=== PATIENT | male | born 1960 | race Caucasian/White ===

== ENCOUNTER 2020-09-14 21:05 | Emergency (ER) | payer OTHER, MEDICARE, MEDICAID, SELFPAY ==
--- NOTE | ~2020-09-14 | CT_ITS ---
EXAMINATION: CT HEAD WITHOUT CONTRAST CLINICAL INFORMATION: Acute CVA. Intracranial bleed. COMPARISON: CT head 07/16/2018 TECHNIQUE: Contiguous axial imaging was performed from the skull base to vertex without intravenous administration of contrast. This CT examination was performed using dose optimization techniques as appropriate, variously including the following: *Automated exposure control *Adjustment of mA and/or kV according to patient size (this includes techniques or standardized protocols for targeted exams where dose is matched to indication/reason for exam; i.e. extremities or head) *Use of iterative reconstruction technique DLP: 828 mGy-cm FINDINGS: There is an old infarct with large area of encephalomalacia in the left MCA territory is unchanged since the CAT scan of 2018. There is now geographic area of low attenuation involving cortical wilkerson matter and underlying white matter in the right MCA territory involving the right temporal, parietal and frontal lobe. This is new since prior exam. This does have mild mass effect. There is compression of the right lateral ventricle. There is about 4 mm midline shift toward the left. The right middle cerebral artery is hyperdense concerning for thrombus. There are heavy vascular calcification of the internal carotid arteries bilaterally as well as calcification of the right greater than left middle cerebral arteries. There is vascular calcifications of the basilar artery and the vertebral arteries. No evidence of intracranial hemorrhage . The osseous structures and soft tissues are normal. The mastoid air cells and visualized portions of the paranasal sinuses are well aerated. CT/CT head/brain wo con IMPRESSION: 1. Large right-sided MCA territory infarct that appears to be subacute. Possible thrombus of the right middle cerebral artery. 2. Large old left-sided MCA territory infarct. This critical result was discussed with Dr. Perez on 09/14/2020, 9:30 PM and it was ascertained that the content and urgency of the report was understood at the time of direct communication.
--- NOTE | ~2020-09-14 | CT_ITS ---
EXAMINATION: CT ANGIOGRAM NECK WITH CONTRAST CT ANGIOGRAM BRAIN WITH CONTRAST CLINICAL INFORMATION: Right MCA CVA. COMPARISON: Head CT performed just prior. TECHNIQUE: Test bolus sequences followed by intravenous administration 70 mL of Omnipaque 350. Helical imaging was performed in the axial plane from the thoracic inlet to the skull vertex. Delayed postcontrast imaging of the head was also performed. The data was processed at the mammography technologist workstation for generation of MIP sequences. Angled MIPs and volume rendered reformatted images were also generated at an offline 3D workstation. Stenoses are assessed in accordance with NASCET criteria unless otherwise indicated. This CT examination was performed using dose optimization techniques as appropriate, variously including the following: *Automated exposure control *Adjustment of mA and/or kV according to patient size (this includes techniques or standardized protocols for targeted exams where dose is matched to indication/reason for exam; i.e. extremities or head) *Use of iterative reconstruction technique DLP: 1553 mGy-cm FINDINGS: Head CT: There is a large evolving acute infarct within the right MCA vascular territory involving the frontal lobe, parietal lobe, temporal lobe, insula, and basal ganglia. No gross hemorrhage is seen. There is cytotoxic edema with associated sulcal effacement results in partial narrowing of the right lateral ventricle with 4 mm of leftward midline shift. A large chronic infarct is seen in the left MCA vascular territory with encephalomalacia and gliosis and ex vacuo dilatation of the left lateral ventricle. Some dystrophic calcifications are also seen within the region of infarction. The extracranial structures are within normal limits. Neck CTA: The imaged portions of the great vessels appear patent. Atheromatous changes are seen involving the common carotid arteries and carotid bifurcations but without significant stenosis. The cervical segments of both ICAs are patent. Atheromatous changes are seen at the carotid siphons without significant stenosis. Bilateral vertebral arteries are patent. Head CTA: The right M1 MCA segment is occluded. The right M2 segments are nonopacified. There is some distal opacification of MCA collaterals. The right A1 segment is patent. The left M1 is occluded which is presumably chronic. The left M2 demonstrates diminutive opacification. The ACAs are patent. The vertebrobasilar system and furniture stainer are patent. No aneurysm is seen. Non-vascular findings: A large amount of air is seen within the pharynx. There is no consolidation within the upper lungs. Degenerative changes are seen in the spine. CT/CT angio head neck IMPRESSION: Thrombotic occlusion of the right M1 MCA segment with evolving large MCA territory ischemic changes. The degree of cytotoxic edema and presence of sulcal effacement, mild leftward midline shift, and narrowing of the right lateral ventricle suggests this infarct may be greater than 24 hours old. Left M1 segment also appears occluded but is likely chronic given the extensive encephalomalacic and gliotic changes seen in left cerebral hemisphere related to old MCA infarction. Major neck arteries are patent. This critical result was discussed with Dr. Perez on 09/14/2020 9:48PM, and it was ascertained that the content and urgency of the report was understood at the time of direct communication.
--- NOTE | ~2020-09-14 | XR_ITS ---
EXAMINATION: XR CHEST CLINICAL INFORMATION: CVA. COMPARISON: None TECHNIQUE: Frontal portable view of the chest was obtained. 10:23 PM FINDINGS: Endotracheal tube 3.5 cm both dl. Lung volume is low. No acute change. No significant pulmonary vascular congestion. No pleural effusion or pneumothorax. No focal consolidation. XR/XR chest 1V IMPRESSION: Endotracheal tube 3.5 cm above the dl. Low lung volume. No acute change of chest.
--- NOTE | 2020-09-14 21:13 | ED.NEUROSD ---
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 wheelchair-bound aphasic was seen normal 14:00 yesterday by the [facility] staff today he did get up from the bed sore urine and they noticed that he is not moving his left side and called the EMS on arrival patient was giving to the right side no movement to the left side minimal movement on the right side, patient is on Eliquis Onset (ago): day(s) (1) Timing confirmed by: caregiver Related Data Allergies Allergy/AdvReac Type Severity Reaction Status Date / Time No Known Allergies Allergy Unverified 04/12/20 19:33 [No Known Allergies*] Review of Systems Review of Systems: Yes Unobtainable due to mental status [facility] Past Medical History Medical History (Updated 09/15/20 @ 01:47 by Bigg Perez MD) Abdominal aortic aneurysm Anxiety Aphasia Left-sided cerebrovascular accident (CVA) Social History Social History Advance Directives: No Advance Directives Information Provided: Yes Physical Exam Vital Signs: Vital Signs: Last Vital Signs Pulse 108 H 09/15/20 01:20 Resp 12 09/15/20 01:20 BP 125/89 09/15/20 01:20 Pulse Ox 86 L 09/15/20 01:20 Body Mass Index 26.2 Const: General: well developed and ill appearing HENMT: Head: Yes No palpable skull fracture present, Yes normocephalic and Yes atraumatic Eyes: Other: Gaze to the right side Sclerae: sclerae normal Corneas: corneas normal Pupils: Equal, round and reactive pupils present Neck: Neck: Yes normal visual inspection and Yes midline deformity Carotids: normal carotid upstroke Chest: Chest palpation & inspection: normal palpation of entire chest wall Resp: Effort & Inspection: normal respiratory effort Auscultation: clear to auscultation bilaterally, no crackles, no rales and no rhonchi Cardio: Jugular venous distension: no JVD Rate: regular rate Rhythm: regular rhythm Heart sounds: S1 normal heart sound present and S2 normal heart sound present Peripheral pulses: Peripheral pulses 2+ throughout GI: Inspection: Yes normal to inspection Palpation (GI): Soft to palpation and nontender Auscultation: normal bowel sounds Back/Spine/Pelvis: Thoracic/Lumbar Spine: thoracic and lumbar spine normal to inspection Skin: General skin exam: no rashes or lesions noted Neuro: Other: Patient awake with minimal movements on the right side minimal movement to the right side no movement on the left side aphasic Cranial nerves: Yes Equal, round and reactive pupils present Course Reevaluation(s) Reevaluation #1: Case discussed with patient's brother decided to make the patient PSYCHIATRIC SECRETARY will taking off from ventilator Time: 00:13 Reevaluation #2: Patient off ventilator breathing off his own will consult case management for placement/hospice care Time: 01:40 Procedures Intubation Time out performed: Yes sedative: Etomidate Mg Given: 20 paralytic: Rocuronium Mg Given: 50 Laryngoscope: Tanya ET Tube Size: 8 ET Tube Uncuffed: No Tube Secured Depth (cm): 24 Tube Secured Location: lips Tube Placement Confirmation: visualized tube passing through cords Patient Tolerated Procedure: no complications Intubation Complications: none MDM - Neuro Symptoms/Deficit MDM Narrative Medical decision making narrative: 22:10 Patient with subacute right MCA stroke with M1 thrombus and significant vasogenic edema likely onset about 24 hours patient already on Eliquis case discussed Dr. Gold neurologist very minimal could be done advised to call neurointerventional for possible thrombectomy. [facility] called interventionalist is busy none of the case and unable to take the case. [facility] called awaiting for the reply. Patient been intubated as he is full code tried to call family unable to reach patient's brother Michel Becerra phone number [phone] 22:16: Case discussed with neuro intervention at [facility] not a interventional case because of the edema already patient has infarcted 22:[address] gilliam laboratory supervisor will take the patient to ICU 22:26 dictate case discussed with patient's brother according to patient wishes he does not want to prolong his life if prognosis is bad. Patient's brother will come to the ER and then decide for extubation. Lab Data Attestation: I reviewed the patient's lab results. Labs: Lab Results 09/14/20 09/14/20 Range/Units 21:43 Unknown POC Glucose 195 H (60-115) mg/dL COVID-19 (MEJIA) Negative (Negative) COVID-19 Clin Com See Note NIH Stroke Scale Internal: Initial- Upon Arrival Level of Consciousness: Alert Level of Consciousness Questions: Answers neither question correctly Level of Consciousness Commands: Performs neither task correctly Best Gaze: Forced deviation (to right) Motor Arm (Right): No effort against gravity Motor Arm (Left): No effort against gravity Motor Leg (Right): No effort against gravity Motor Leg (Left): No effort against gravity Best Language: Severe aphasia Dysarthia: Severe dysarthria Critical Care Time Critical Care Time Critical Care Time: Yes Total Critical Care Time: 45 Attestation: I spent 45 minutes of critical care, with interventions, assessments, speaking to family and consultants, Discharge Plan Discharge Clinical Impression: Cerebrovascular accident Qualifiers: CVA mechanism: thrombosis Precerebral and cerebral artery: middle cerebral artery Laterality of affected vessel: right Qualified Code(s): I63.311 - Cerebral infarction due to thrombosis of right middle cerebral artery
[2020-09-14 21:23] VITALS: BMI 26.2
--- NOTE | 2020-09-14 21:31 | PC.NURSE ---
PT RETURNED FROM CT GAZE FIXED RIGHT, SNORING RESPIRATIONS MD AWARE, RT CALLED FOR INTUBATION.
[2020-09-14 21:33] VITALS: BP 158/108; PULSE 122; RESP 22; O2SAT 92
[2020-09-14] MEDS: iohexoL 350 MG/ML 100 ML INFUS..BTL IV (21:38)
[2020-09-14 21:48] LABS: Glucose, Whole Blood 195 mg/dL (60-115)
[2020-09-14] MEDS: Etomidate 20 MG/10 ML VIAL IVPUSH (21:55)
[2020-09-14] MEDS: Rocuronium Bromide 50 MG/5 ML VIAL IVPUSH (21:58)
[2020-09-14 22:09] VITALS: BP 168/103; PULSE 102; RESP 20; O2SAT 99
[2020-09-14 22:23] VITALS: BP 178/116; PULSE 111; O2SAT 98
[2020-09-14] MEDS: levETIRAcetam 1,000 MG in 0.9 % Sodium Chloride 100 ML 400 MG IV (22:37)
[2020-09-14] MEDS: Pantoprazole Sodium 40 MG/10 ML VIAL IVPUSH (22:43)
[2020-09-14] MEDS: propofoL 1,000 MG/100 ML VIAL 9.96 MG IVCONT (22:57)
[2020-09-14] MEDS: levETIRAcetam in NaCl (iso-os) 1,000 MG/100 ML PIGGYBACK 400 MG IV (23:02)
--- NOTE | 2020-09-14 23:03 | PC.NURSE ---
Provider spoke with patient's brother who was coming in to speak with the provider regarding his family members conditon and prognosis. Family should arrive in the next 45 minutes. Propofol drip started at 20 mcg/kg/min with rate of 9.96 ml/hr but unable to chart in mar
[2020-09-14 23:19] VITALS: BP 169/101; PULSE 98; RESP 20; O2SAT 99
[2020-09-14 23:28] VITALS: BP 169/101; PULSE 89; RESP 20; O2SAT 98
[2020-09-15] VITALS (12 sets, daily range): BP systolic 124–170; BP diastolic 84–108; PULSE 101–160; RESP 12–26; TEMP 36.4–38.3; O2SAT 86–94
--- NOTE | 2020-09-15 00:22 | PC.NURSE ---
Discussion between ED provider and brother of patient about prognosis. Patient was made SENIOR MECHANICAL TECHNICIAN measures only. Propofol drip stopped and respiratory notified to come.
[2020-09-15] MEDS: ondansetron HCL 4 MG/2 ML VIAL IVPUSH (00:42)
[2020-09-15] MEDS: Morphine Sulfate 10 MG/ML CARTRIDGE IVPUSH ×2 (00:42→19:54)
--- NOTE | 2020-09-15 00:43 | PC.NURSE ---
Patient was extubated by respiratory and medicated per emar as noted. Brother at bedside. Patient is snoring.
[2020-09-15 00:50] LABS: COVID-19 Test Negative (Negative)
--- NOTE | 2020-09-15 02:15 | PC.NURSE ---
EULOGIO AMIN TOLD ME THAT ALL ORDER WAS CANCEL FOR PATIENT .
--- NOTE | 2020-09-15 02:23 | PC.NURSE ---
patient was inconient of urine ,patient was change and reposition by this pct and pct mirsol
[2020-09-15] MEDS: Scopolamine 1.5 MG PATCH.TD.3 EAR-BEHIND (02:31)
--- NOTE | 2020-09-15 06:47 | ED_ITS ---
HPI - Neuro Symptoms/Deficit General Chief Complaint: Stroke Stated Complaint: stroke Time Seen by Provider: 09/14/20 21:06 Source: EMS Mode of arrival: EMS Limitations: altered mental status Related Data Allergies Allergy/AdvReac Type Severity Reaction Status Date / Time No Known Allergies Allergy Unverified 04/12/20 19:33 [No Known Allergies*] [facility] Past Medical History Medical History (Updated 09/18/20 @ 00:00 by Background Daemon) Abdominal aortic aneurysm Anxiety Aphasia Left-sided cerebrovascular accident (CVA) Social History Social History Advance Directives: Yes Advance Directives Information Provided: Yes Physical Exam Vital Signs: Vital Signs: Last Vital Signs Temp 104.2 F H 09/16/20 14:00 Pulse 117 H 09/16/20 20:00 Resp 6 L 09/16/20 20:00 BP 141/55 H 09/16/20 06:00 Pulse Ox 78 L 09/16/20 18:28 Body Mass Index 26.2 MDM - Neuro Symptoms/Deficit Lab Data Labs: Lab Results 09/14/20 09/14/20 09/14/20 Range/Units 21:38 21:43 Unknown Whole Blood PT 13.1 (11.1-13.5) sec Whole Blood INR 1.1 (0.9-1.1) POC Glucose 195 H (60-115) mg/dL COVID-19 (MEJIA) Negative (Negative) COVID-19 Clin Com See Note Discharge Plan Discharge Clinical Impression: Cerebrovascular accident Patient Disposition: Discharge Date/Time: 09/17/20 05:12 Date/Time: 09/16/20 00:44
--- NOTE | 2020-09-15 07:42 | PC.NURSE ---
pt was sweating through his gown and soaking his linens so he was cleaned and changed by staff. mouth care was also provided. pt unresponsive to verbal stimuli and unable to move at all voluntarily. eyes are fixed to the right. pt has a tremor in right arm which is exacerbated during position changes. pt is breathing through mouth, respirations are non-labored but patient has periods of gurgled breathing. skin pink warm and dry after being cleaned by staff. md bui
--- NOTE | 2020-09-15 08:01 | PC.NURSE ---
skill training program coordinator from pt's longterm bharath leger ([phone]) [place] [facility] [place] status.
[2020-09-15] MEDS: Morphine Sulfate 4 MG/ML CARTRIDGE IVPUSH (09:38)
--- NOTE | 2020-09-15 11:50 | PC.NURSE ---
morphine drip infusing at 8mg/hr. aware.
[2020-09-15] MEDS: Midazolam HCl/PF 2 MG/2 ML VIAL 4 MG IVPUSH (12:32)
--- NOTE | 2020-09-15 12:49 | PC.NURSE ---
Addendum entered by Troy Villatoro RN 09/15/20 12:56: cleaned and repositioned twice since start of shift. Original Note: group exercise manager (Name: Odette) was at bedside with patient asking how the pt is doing today. Odette was reassured that we are working to make Twin comfortable and pain free. We also told Odette that we have changed and cleaned Twin twice since start of shift. Odette has no other questions at this time.
--- NOTE | 2020-09-15 13:55 | PC.NURSE ---
PT'S [id number](SISTER'S ) LARRY EWING ([phone]) CALLED [facility] [place] AND WAS UPDATED ON PT STATUS. BROTHER -IN-LAW IS ASKING THAT HE AND HIS COULD ALSO BE UPDATED BECAUSE ITS BEEN HARD TO GET IN TOUCH WITH PT'S BROTHER.
--- NOTE | 2020-09-15 16:00 | PC.NURSE ---
late entry 1500. appears confortable. brother and hcp, yolande at bedside. pt unable to respond to verbal stimuli. unable to follow commands. gazing right. right side has preexisting deficit. unlabored resp a this time, yawning at times. skin pwd. iv infusing well in to L a/c 8mg morphine/hour.
--- NOTE | 2020-09-15 16:27 | PC.NURSE ---
diaphoretic with heart rate in 130-150's. continues to appear comfortable but rr is irregular at times. staff and brother at bedside. pt incontient of large amount of urine and cleansed. condom cath applied. morphine increased to 9mg/hr.
[2020-09-15] MEDS: LORazepam 2 MG/ML VIAL IVPUSH ×2 (17:28→19:35)
--- NOTE | 2020-09-15 17:28 | PC.NURSE ---
pt found to be tachy again in 170's with deep distressed breaths and increased work of breathing. diaphoretic. MD duckworth aware and ativan iv administered with good effect. now resting quietly with easy unlabored resp and st in 140's. staff remain at bedside. case management has not seem patient as far as this rn can see in chart. pt awaits CM consult in the am.
--- NOTE | 2020-09-15 17:31 | PC.NURSE ---
pt suctioned with very little output. positioned at 45 degrees.
--- NOTE | 2020-09-15 18:18 | PC.NURSE ---
continues to rest queitly
--- NOTE | 2020-09-15 19:40 | PC.NURSE ---
again tachy in 170's and diaphoretic, increased work of breathing. diaphoretic. medicated with ativan. hr taking a while to slow but eventually in 140;s oral suctioning with minimal effect. cleansed of urine. condom cath d/c'd
--- NOTE | 2020-09-15 22:08 | PC.NURSE ---
continues to appear comfortable. repositioned in hospital bed. producing urine in kemp cath. felt hot to touch but rectal is only 101.0. rectal tylenol requested.
--- NOTE | 2020-09-15 23:11 | PC.NURSE ---
update to cecy, sister via telephone. pt is resting comfortably. no longer diaphoretic. st in 120's
[2020-09-16] VITALS (11 sets, daily range): BP systolic 120–149; BP diastolic 55–92; PULSE 82–162; RESP 6–28; TEMP 40.1; O2SAT 61–95
--- NOTE | 2020-09-16 04:21 | PC.NURSE ---
While this RN was in another patient's room, noticed that patient's oxygen saturation began to decrease to mid-80s on 4LPM via nasal cannula. This RN suctioned patient, noted to have dark brown, wet coffee-ground like fluids in mouth and nares. Pt intermittently coughing, ?aspiration. Foul smell noted from mouth. Non-rebreather placed on patient, oxygenation improving. Pt repositioned with wedge placed underneath, to right side. This RN attempted to contact patient's brother (Michel) but was unable to reach; left voicemail to call back. Also called [facility] and relayed patient updates, offered to have staff/family/friends come to bedside. 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 Intermittent suctioning to continue. Patient's [id number] (Keenan) also contacted but lives in [place] and is unable to be at bedside at this time. Keenan given updates as requested. Keenan states that he will also attempt to contact Michel. No additional local family/friends to contact, per Keenan. Will continue to monitor patient. Pt linens changed for comfort, personal care provided.
[2020-09-16] MEDS: LORazepam 2 MG/ML VIAL IVPUSH ×2 (05:22→06:08)
[2020-09-16] MEDS: ondansetron HCL 4 MG/2 ML VIAL 8 MG IVPUSH (05:22)
[2020-09-16] MEDS: Scopolamine 1.5 MG PATCH.TD.3 EAR-BEHIND (05:28)
[2020-09-16] MEDS: Atropine Sulfate 1 % Ophth Sol 2 ML BOTTLE 4 DROP SUBLINGUAL (05:42)
[2020-09-16] MEDS: Prochlorperazine Edisylate 10 MG/2 ML VIAL IVPUSH (06:54)
[2020-09-16] MEDS: Midazolam HCl/PF 2 MG/2 ML VIAL 4 MG IVPUSH (06:54)
[2020-09-16] MEDS: HYDROmorphone HCl 2 MG/ML VIAL IVPUSH (07:48)
--- NOTE | 2020-09-16 08:12 | PC.NURSE ---
pt remains tachycardic and tachypnea s/p dilaudid
--- NOTE | 2020-09-16 09:48 | PC.NURSE ---
PT WITH INCREASED GASTRIC OUTPUT, FOAMY BROWN FROM HIS MOUTH AND NARES. HE REMAINS TACHYCARDIAC AND HYPOXIC-PERIPHERAL O2 IS IN THE MID 60S
--- NOTE | 2020-09-16 10:09 | PC.NURSE ---
BROTHER AT THE BEDSIDE
--- NOTE | 2020-09-16 10:23 | PC.NURSE ---
family at bedside. pt continues need for suctioning of brown/frothy secretions from nose and mouth.
--- NOTE | 2020-09-16 10:39 | MHC.CM.PN ---
per e.d. physician request a ref. to hospice has been made. spoke c germination worker hospice r.n. at [facility], she is coming in to evaluate pt in approx. 1 hr. e.d. staff is aware of hospice visit. pending hospice recommendations further refs. for placement / dispo may or maynot have to be made. cm to cont. to follow.
--- NOTE | 2020-09-16 11:16 | PC.NURSE ---
FAMILY REMAINS AT BEDSIDE AND PT SUCTIONED AGAIN. CALL TO [facility] PARTNER FOR [facility] TO CHANGE BAG OF MORPHINE DRIP.
--- NOTE | 2020-09-16 12:26 | PC.NURSE ---
morphine drip wasted with jeremie berman. 65ml left in bag and wasted at 1225. new bag hung at this time.
--- NOTE | 2020-09-16 12:31 | PC.NURSE ---
witnessed morphine bag change with Jenae KRISHNAN. Wasted 65ml morphine, documented in pyxis.
--- NOTE | 2020-09-16 12:31 | PC.NURSE ---
government service executive and family remain at bedside with pt. morphine infusion continues at 10ml.
--- NOTE | 2020-09-16 13:41 | PM.IMHP ---
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 He has a history of stroke in the past with aphagia and hemiplegia. In the ED, he was obtunded, hypoxic and initially intubated after head CTA showed Large MCA infarct. Initially the plan was to transfer the patient to tertiary facility for thrombectomy however, due to the extent of the stroke the patient was not accepted. The patients brother decided that the patient should be BACKUP ADMINISTRATIVE COORDINATOR with no further aggressive intervention. Patient was extubated. Patient showed agitation and was given multiple medications including propofol, ativan, versed. He was medicated for nausea and increased secretions. He will be admitted to [facility] hospice for management of acute MCA stroke. Review of Systems Review of Systems: Yes Unobtainable due to mental status [facility] Medical History (Updated 09/15/20 @ 01:47 by Bigg Perez MD) Abdominal aortic aneurysm Anxiety Aphasia Left-sided cerebrovascular accident (CVA) Social History Advance Directives: No Advance Directives Information Provided: Yes Meds Allergies Allergy/AdvReac Type Severity Reaction Status Date / Time No Known Allergies Allergy Unverified 04/12/20 19:33 [No Known Allergies*] Active Medications: Current Medications Generic Name Dose Route Start Last Admin Trade Name Freq PRN Reason Stop Dose Admin Atropine Sulfate 2 drop 09/16/20 13:39 Atropine Sulfate 1 % Ophth Hue 2 Ml Bottle SUBLINGUAL Q4H PRN Secretions Propofol 1,000 mg in 100 mls @ 0 mls/hr 09/14/20 22:00 09/15/20 00:40 Diprivan IVCONT Infused .Q0M ASHLEIGH Titration Protocol Per Protocol Morphine Sulfate 100 mg in 100 mls @ 0 mls/hr 09/15/20 07:15 09/16/20 12:25 IVCONT 10 mls/hr .Q0M ASHLEIGH Administration Protocol Per Protocol Scopolamine 1.5 mg 09/16/20 13:45 Scopolamine 1.5 Mg Patch.Td.3 TRANSDERMA Q72H ASHLEIGH Physical Exam Vital Signs and Narrative: Vital Signs: Last Vital Signs Temp 101.0 F H 09/15/20 21:58 Pulse 155 H 09/16/20 11:44 Resp 20 09/16/20 11:44 BP 141/55 H 09/16/20 06:00 Pulse Ox 71 L 09/16/20 11:44 Body Mass Index 26.2 Obtunded, GCS 3. head is normocephalic atraumatic eyes sclera is anicteric mouth throat mucous membranes are intact neck is supple no lymphadenopathy, no JVD noted lung sounds coarse heart tachycardia positive bowel sounds, abdomen is soft, nontender, oozing black emesis neuro nonverbal Assessment and Plan (1) Cerebrovascular accident: Qualifiers: CVA mechanism: thrombosis Laterality of affected vessel: right Precerebral and cerebral artery: middle cerebral artery Qualified Code(s): I63.311 - Cerebral infarction due to thrombosis of right middle cerebral artery Status: Acute 60 year old man admitted with large MCA stroke. Patient was admitted to [facility] hospice as BACKUP ADMINISTRATIVE COORDINATOR. Spoke with patients brother Michel Becerra ([phone]) he is the patients HCP and had made patient BACKUP ADMINISTRATIVE COORDINATOR Stroke. Comfort care, no aggressive treatment. Pain management. Manage secretions, anxiety. Central fever, try IV tylenol. GI bleed. Patient has had oozing emesis and abdominal wretching, may need NGT if worsens for comfort. Will also add PPI to decrease wretching, for comfort. Discussed with Dr. Torres
--- NOTE | 2020-09-16 14:08 | PC.NURSE ---
pt cleaned and repositioned with home hospice rn. temp rectally 104.2 cyril rosa aware
[2020-09-16] MEDS: Haloperidol Lactate 5 MG/ML VIAL IVPUSH (14:38)
--- NOTE | 2020-09-16 19:20 | PC.NURSE ---
ASSUMED CARE OF PT. PT IN HOSPITAL BED FOR COMFORT. PT APPEARS TO BE COMFORTABLE AT THIS TIME. PT ON MONITOR WITH HR 117 WITH N/L EASY RESPIRATIONS. PT SUCTIONED FOR DK SECRETIONS. MORPHINE DRIP UP AND RUNNING W/O DIFFICULTY CONFIRMED WITH EULOGIO MAIER. KIMBROUGH DRAINING W/O DIFFICULTY. WILL CONTINUE TO MONITOR PT.
--- NOTE | 2020-09-16 20:12 | PC.NURSE ---
PT BEING SUCTIONED WITH DK/BLACK SECTRETIONS IN [facility]. PT APPEARS TO BE COMFORT. MORPHINE DRIP AND AND RUNNING AT 9.9 MG/HR. PT ON MONITOR WITH HR 117 AND RESPIRATIONS 6. WILL CONTINUE TO MONITOR PT.
--- NOTE | 2020-09-16 20:38 | PC.NURSE ---
FAMILY ON PHONE AND PHONE NEXT TO PT'S EAR SO FAMILY CAN SPEAK WITH PT. PT GETTING CLEANED UP AND APPEARS TO BE COMFORT AT THIS TIME. MORPHINE DRIP CONTINUES FOR COMFORT. WILL CONTINUE TO MONITOR PT.
--- NOTE | 2020-09-16 22:36 | PC.NURSE ---
MORPHINE BAG CHG WITH GEE RN AND NATALIA MECHANICAL TECHNICIAN. WASTE WITNESSED. MORPHINE PUMP UP AND RUNNING W/O DIFFICULTY INTO LAC, SITE INTACT. HR 125, PO 64% ON RA. PT APPEARS TO BE COMFORTABLE. PT SUCTIONED WITH DK SECRETIONS. WILL CONTINUE TO MONITOR PT.
[2020-09-16] MEDS: Atropine Sulfate 1 % Ophth Sol 2 ML BOTTLE 2 DROP SUBLINGUAL (23:46)
--- NOTE | 2020-09-17 00:15 | PC.NURSE ---
PT SLEEPING AND UNABLE TO AROUSE. MORPHINE DRIP RUNNING FOR COMFORT. PT REMAINS ON MONITOR WITH HR 156, PO 45% ON RA WITH RESP 15. WILL CONTINUE TO MONITOR PT.
--- NOTE | 2020-09-17 00:44 | PC.NURSE ---
PT PASSED AT THIS TIME AND ANNOUNCED BY DR PIEDRA. BROTHER FRANCOISE BEING CALLED AT THIS TIME.
--- NOTE | 2020-09-17 01:13 | PC.NURSE ---
PER DR PIEDRA TIME OF 004
--- NOTE | 2020-09-17 01:20 | PC.NURSE ---
CALLED [facility] AND TALKED WITH [facility] WHO IS ACCEPTING PT FOR POSSIBLE DONATION.
--- NOTE | 2020-09-17 04:09 | PC.NURSE ---
BODY IS BEING PREPARED FOR MORGE AND PLACED IN A BODY BAG.
[2020-09-17 07:34] LABS: Prothrombin Time Whole Bld POC 13.1 sec (11.1-13.5); ~PT, ~INR - Anti Coag Clinic 1.1 (0.9-1.1)
--- NOTE | 2020-09-17 11:56 | PM.DDS ---
Discharge Sum: Prov Provider Primary care physician: Unknown Physician Admitting clinician: Boo Torres Attending physician on admission: Boo Mendez Pronouncing clinician: Michaelle Sánchez Discharge Sum: Diag PCOD Cause of : Respiratory arrest Contributing Factors (1) Cerebrovascular accident: Discharge Sum: Summary Date and Time Date of : 09/17/20 Summary Details: HP 60 year old man presenting from his halfway after being found unresponsive. He has a history of stroke in the past with aphagia and hemiplegia. In the ED, he was obtunded, hypoxic and initially intubated after head CTA showed Large MCA infarct. Initially the plan was to transfer the patient to tertiary facility for thrombectomy however, due to the extent of the stroke the patient was not accepted. The patients brother decided that the patient should be [employer] with no further aggressive intervention. Patient was extubated. Patient showed agitation and was given multiple medications including propofol, ativan, versed. He was medicated for nausea and increased secretions. He will be admitted to [facility] hospice for management of acute MCA stroke . MCA stroke. Patient admitted to [facility] hospice and made [facility] [employer] as per patients brother's request. Placed on IV morphine for comfort. Patient pronounced by Dr. Michaelle Sánchez at 0050 on 09/17/20. Additional Data Was code activated?: No Organ bank notified?: Yes Advance directives: Yes Hospice patient?: Yes
== END 2020-09-17 05:12 | disposition expired ==
PROVIDERS: Emergency Provider Internal Medicine
DX: I63.311 Cerebral infarction due to thrombosis of right middle cerebral artery (principal); Z20.822 Contact with and (suspected) exposure to COVID-19
CPT/HCPCS: 31500; 36415; 70450; 70496; 70498; 71045; 82947; 85610; 87635; 94002; 94003; 96365; 96375; 96376; 99285; 99291; J0131; J1100; J1170; J1953; J2060; J2250; J2270; J2405; Q9967